=== PATIENT | female | born 2000 | race Caucasian/White ===

== ENCOUNTER 2025-01-06 17:03 | Emergency (ER) | payer OTHER ==
[~2025-01-06] VITALS: Ht 154.9 cm; Wt 81.7 kg
[2025-01-06 17:15] VITALS: BP 142/83
[2025-01-06] MEDS ORDERED: NS 1,000 ML IV SCH (17:20)
[2025-01-06 17:52] LABS: Source, Urine Clean Catch
[2025-01-06 18:12] LABS: BASOPHILS ABSOLUTE AUTO 0.03 K/mm3 (0.00-0.23); BASOPHILS PERCENT AUTO 0 % (0-2); EOSINOPHILS ABSOLUTE AUTO 0.09 K/mm3 (0.00-0.68); EOSINOPHILS PERCENT AUTO 1 % (0-6); Hematocrit 43.4 % (33.0-51.0); Hemoglobin 14.7 g/dL (11.5-16.0); IMMATURE GRAN ABSOLUTE AUTO 0.03 K/mm3 (0.00-0.10); IMMATURE GRAN PERCENT AUTO 0 % (0-1); LYMPHOCYTES ABSOLUTE AUTO 2.39 K/mm3 (0.84-5.20); LYMPHOCYTES PERCENT AUTO 24 % (21-46); MONOCYTES ABSOLUTE AUTO 0.50 K/mm3 (0.16-1.47); MONOCYTES PERCENT AUTO 5 % (4-13); Mean Corpuscular HGB Conc 33.9 g/dL (31.5-36.5); Mean Corpuscular Volume 86 fL (80-100); NEUTROPHILS ABSOLUTE AUTO 7.02 K/mm3 (1.96-9.15); NEUTROPHILS PERCENT AUTO 70 % (41-73); NRBC ABSOLUTE 0.00 K/mm3 (0.00-0.02); NRBC Auto 0.0 /100 WBC (0.0-0.2); Platelet Count 302 K/mm3 (150-400); RDW Coefficient Variation 13.0 % (11.7-14.2); RDW Standard Deviation 40.6 fL (35.1-46.3)
[2025-01-06 18:36] LABS: Bilirubin, Urine Neg (Neg); Glucose Qualitative, Urine Neg (Neg); Ketones, Urine Neg (Neg); Leukocyte Esterase, Urine 1+ (Neg); Protein, Urine Neg (Neg); Specific Gravity, Urine 1.010 (1.003-1.022); Urobilinogen, Urine NORM (Normal)
[2025-01-06 18:43] LABS: Alanine Aminotransfer (ALT/SGP 22 U/L (12-78); Albumin, Blood 3.5 g/dL (3.4-5.0); Albumin/Globulin Ratio 0.9 (0.8-1.8); Anion Gap 9 mmol/L (3-11); Aspartate Aminotrans (AST/SGOT 22 U/L (12-37); Bilirubin, Total 0.3 mg/dL (0.1-1.0); Blood Urea Nitrogen 8 mg/dL (8-24); CO2, Blood 22 mmol/L (21-32); Calcium, Blood 8.0 mg/dL (8.5-10.1); Chloride, Blood 110 mmol/L (98-108); Creatinine, Blood 0.45 mg/dL (0.40-1.00); Ethanol (Alcohol), Blood, Med <3 mg/dL; Globulin, Blood 3.9 g/dL (2.2-4.0); Glucose, Blood 99 mg/dL (70-99); Potassium, Blood 3.6 mmol/L (3.5-5.5); Sodium, Blood 137 mmol/L (136-145); Thyroid Stimulating Hormone 1.990 uIU/mL (0.360-4.800); Total Protein, Blood 7.4 g/dL (6.4-8.2)
[2025-01-06 19:12] LABS: Color, Urine Pale Yellow (P-Yellow)
[2025-01-06 19:14] LABS: Red Blood Cells, Urine 0-2 /hpf (0-2); White Blood Cells, Urine 0-2 /hpf (0-5)
[2025-01-06 20:50] LABS: U Amphetamine Screen Not Detected; U Barbituate Screen Not Detected; U Benzodiazapine Screen Not Detected; U Buprenorphine Screen Not Detected; U Cannabinoids Screen Not Detected; U Cocaine Screen Not Detected; U Methadone Screen Not Detected; U Methamphetamine Screen Not Detected; U Opiates Screen Not Detected; U Oxycodone Screen Not Detected; U Phencyclidine Screen Not Detected
== END 2025-01-06 20:46 | disposition home or self-care (01) ==
LOC: ER 17:03
PROVIDERS: Emergency Medicine
DX: F12.929 Cannabis use, unspecified with intoxication, unspecified (principal); F17.290 Nicotine dependence, other tobacco product, uncomplicated
CPT/HCPCS: 70450; 71045; 80053; 80320; 81001; 81025; 84439; 84443; 85025; 93005; 93010; 96360; 99285-25; J7030